=== PATIENT | female | born 1965 | race American Indian/Alaskan Native ===

== ENCOUNTER 2017-08-25 13:20 | Outpatient (CLI) | payer OTHER ==
--- NOTE | 2017-08-25 16:16 | Mammography Report ---
Bilateral mammogram: Compared to 11/26/15. CAD study utilized. Findings: Predominance of adipose tissue bilaterally. No mass or microcalcification. Benign axillary nodes. Impression: Benign findings. Annual followup recommended. BI-RADS CATEGORY: 2 = Benign ACR BI-RADS MAMMOGRAPHIC CODES: 0 = Needs additional imaging evaluation; 1 = Negative; 2 = Benign; 3 = Probably benign; 4 = Suspicious; 5 = Malignant; 6 = Known biopsy-proven malignancy COMMENT: 1. Dense breast tissue, i.e., adenosis, fibrocystic changes, etc., may obscure an underlying neoplasm. 2. Approximately 10% of cancers are not detected with mammography. 3. A negative mammography report should not delay biopsy if a clinically suspicious mass is present. COMMENT: Patient follow-up letters are generated in [employer].
== END 2017-08-25 13:21 | disposition home or self-care (01) ==
LOC: MAMMO 13:20
PROVIDERS: ATTEND Family Medicine
DX: Z12.31 Encounter for screening mammogram for malignant neoplasm of breast (principal)
CPT/HCPCS: 77067; G0202

== ENCOUNTER 2018-07-04 23:16 | Emergency (ER) | payer OTHER ==
[2018-07-05] MEDS ORDERED: ASPIRIN PO ONE (01:25)
[2018-07-05 02:07] LABS: Hemoglobin 15.5 gm/dl (10.1-14.3); Red Blood Count 4.96 M/mm3 (3.65-5.03)
[2018-07-05 02:08] LABS: Basophils % (Auto) 0.1 % (0.0-1.8); Hematocrit 45.2 % (30.3-42.9); Lymphocytes # (Auto) 1.1 K/mm3 (1.2-5.4); Lymphocytes % (Auto) 16.8 % (13.4-35.0); Mean Corpuscular HGB Conc 34 % (30-34); Mean Corpuscular Hemoglobin 31 pg (28-32); Mean Corpuscular Volume 91 fl (79-97); Monocytes # (Auto) 0.3 K/mm3 (0.0-0.8); Monocytes % (Auto) 4.3 % (0.0-7.3); Platelet Count 243 K/mm3 (140-440)
[2018-07-05 02:15] LABS: BUN/Creatinine Ratio 17; Blood Urea Nitrogen 10 mg/dL (7-17); Calcium 9.9 mg/dL (8.4-10.2); Hemolysis Index 3
--- NOTE | 2018-07-05 06:36 | Emergency Department Report ---
ED Palpitations HPI - General Chief Complaint: Arrhythmia/Palpitations Stated Complaint: POSS HIGH BP Time Seen by Provider: 07/05/18 06:35 Source: patient Mode of arrival: Ambulatory Limitations: No Limitations - History of Present Illness Complaint: "heart racing", palpitations, irregular heart beat -: Sudden Context: occured during rest Associated Symptoms: chest pain, shortness of breath - Related Data Previous Rx's Medication Instructions Recorded Last Taken Type Carvedilol [Coreg] 6.25 mg PO BID #60 tablet 07/05/18 Unknown Rx Lisinopril/Hydrochlorothiazide 1 tab PO QDAY #30 tab 07/05/18 Unknown Rx [Zestoretic 20-25 mg] Allergies Allergy/AdvReac Type Severity Reaction Status Date / Time No Known Allergies Allergy Verified 07/05/18 06:43 ED Review of Systems ROS: Stated complaint: POSS HIGH BP Other details as noted in HPI Comment: All other systems reviewed and negative Constitutional: denies: chills, fever Eyes: denies: eye pain, eye discharge ENT: denies: ear pain, throat pain Respiratory: shortness of breath. denies: cough, orthopnea Endocrine: no symptoms reported Gastrointestinal: denies: abdominal pain, nausea, vomiting, diarrhea Genitourinary: denies: urgency, dysuria, frequency Musculoskeletal: denies: back pain, joint swelling Skin: denies: rash, lesions, change in color Neurological: denies: headache, weakness, numbness Psychiatric: denies: anxiety, depression Hematological/Lymphatic: denies: easy bleeding, easy bruising ED Past Medical Hx - Past Medical History Hx Hypertension: Yes - Surgical History Additional Surgical History: Left Salpingectomy - Social History Smoking Status: Never Smoker Substance Use Type: None - Medications Home Medications: Home Medications Medication Instructions Recorded Confirmed Last Taken Type Carvedilol [Coreg] 6.25 mg PO BID #60 tablet 07/05/18 Unknown Rx Lisinopril/Hydrochlorothiazide 1 tab PO QDAY #30 tab 07/05/18 Unknown Rx [Zestoretic 20-25 mg] ED Physical Exam - General Limitations: No Limitations General appearance: alert, in no apparent distress - Head Head exam: Present: atraumatic, normocephalic, normal inspection - Eye Eye exam: Present: normal appearance, PERRL, EOMI Pupils: Present: normal accommodation - ENT ENT exam: Present: normal exam, normal orophraynx, mucous membranes moist - Neck Neck exam: Present: normal inspection, full ROM. Absent: tenderness - Respiratory Respiratory exam: Present: normal lung sounds bilaterally. Absent: respiratory distress, wheezes, rales, rhonchi, stridor - Cardiovascular Cardiovascular Exam: Present: regular rate, tachycardia. Absent: normal rhythm , normal heart sounds - GI/Abdominal GI/Abdominal exam: Present: soft, normal bowel sounds. Absent: distended, tenderness, guarding, rebound, rigid - Extremities Exam Extremities exam: Present: normal inspection, full ROM, normal capillary refill - Back Exam Back exam: Present: normal inspection, full ROM. Absent: tenderness - Neurological Exam Neurological exam: Present: alert, oriented X3, CN II-XII intact - Psychiatric Psychiatric exam: Present: normal affect, normal mood - Skin Skin exam: Present: warm, dry, intact, normal color ED Course Vital Signs 07/05/18 07/05/18 07/05/18 01:16 06:13 06:18 Temperature 98.7 F 97.6 F Pulse Rate 93 H 94 H Respiratory 18 Rate Blood Pressure 174/83 178/100 Blood Pressure 178/100 [Left] O2 Sat by Pulse 100 99 98 Oximetry 07/05/18 07/05/18 07/05/18 07:00 07:31 08:00 Temperature Pulse Rate 93 H 85 73 Respiratory 13 15 11 L Rate Blood Pressure 179/87 150/69 162/94 Blood Pressure [Left] O2 Sat by Pulse 99 98 98 Oximetry 07/05/18 07/05/18 07/05/18 08:30 09:03 09:30 Temperature Pulse Rate 81 79 86 Respiratory 13 12 12 Rate Blood Pressure 141/80 164/86 160/88 Blood Pressure [Left] O2 Sat by Pulse 97 97 97 Oximetry 07/05/18 07/05/18 07/05/18 10:00 10:30 11:00 Temperature Pulse Rate 81 77 Respiratory 13 13 Rate Blood Pressure 167/89 163/82 166/92 Blood Pressure [Left] O2 Sat by Pulse 98 97 Oximetry 07/05/18 11:30 Temperature Pulse Rate 77 Respiratory 12 Rate Blood Pressure 149/82 Blood Pressure [Left] O2 Sat by Pulse 97 Oximetry - Reevaluation(s) Reevaluation #1: 07/05/18 15:37 Patient was admitted to the hospitalist Dr Burnham for further evaluation and management and Cardiology was consulted. ED Medical Decision Making - Lab Data Result diagrams: 07/05/18 01:38 07/05/18 01:38 - EKG Data -: EKG Interpreted by Me EKG shows normal: sinus rhythm Rate: normal (98) - EKG Data When compared to previous EKG there are: previous EKG unavailable Interpretation: other (Diffused T wave inversion. No STEMI. Prolonged QT.) - Radiology Data Radiology results: report reviewed, image reviewed - Medical Decision Making Palpitation. Chest pain. Abnormal EKG. Critical care attestation.: If time is entered above; I have spent that time in minutes in the direct care of this critically ill patient, excluding procedure time. ED Disposition Clinical Impression: Abnormal electrocardiogram [ECG] [EKG], Heart palpitations Chest pain Qualifiers: Chest pain type: unspecified Qualified Code(s): R07.9 - Chest pain, unspecified Disposition: TO HOME OR SELFCARE Is pt being admited?: Yes Does the pt Need Aspirin: Yes Condition: Stable Instructions: Chest Pain (ED) Prescriptions: Carvedilol [Coreg] 6.25 mg PO BID #60 tablet Lisinopril/Hydrochlorothiazide [Zestoretic 20-25 mg] 1 tab PO QDAY #30 tab Referrals: YAS MIRANDA MD [Staff Physician] - 7 Days PRIMARY CARE, [Primary Care Provider] - 3-5 Days Time of Disposition: 10:26
[2018-07-05] MEDS ORDERED: ASPIRIN ONE (06:59)
[2018-07-05] MEDS ORDERED: NORMODYNE IV ONE (07:05)
--- NOTE | 2018-07-05 07:55 | XRay Report ---
AP CHEST: HISTORY: Palpitations AP view of the chest demonstrates a normal mediastinal and cardiac contour with clear lungs and normal bony and soft tissue structures. IMPRESSION: Unremarkable AP chest.
[2018-07-05 08:20] LABS: INR 0.95 (0.87-1.13)
[2018-07-05 08:21] LABS: Partial Thromboplastin Time 26.5 Sec. (24.2-36.6)
[2018-07-05 08:38] LABS: Alanine Aminotransferase 10 units/L (7-56); Albumin 4.6 g/dL (3.9-5)
[2018-07-05 08:50] LABS: Bilirubin,Direct < 0.2 mg/dL (0-0.2)
[2018-07-05 09:22] LABS: Bilirubin,Urine NEG (Negative); Blood,Urine NEG (Negative); Color,Urine Yellow (Yellow); Mucus,Urine FEW /HPF; Protein,Urine <15 mg/dL mg/dL (Negative); Urobilinogen,Urine < 2.0 mg/dL (<2.0); WBC,Urine < 1.0 /HPF (0.0-6.0)
--- NOTE | 2018-07-05 10:51 | Short Stay Summary ---
Short Stay Documentation Date of service: 07/05/18 - Allergies and Medications Current Medications: Allergies No Known Allergies Allergy (Verified 07/05/18 06:43) Home Medications Medication Instructions Recorded Confirmed Last Taken Type Carvedilol [Coreg] 6.25 mg PO BID #60 tablet 07/05/18 Unknown Rx Lisinopril/Hydrochlorothiazide 1 tab PO QDAY #30 tab 07/05/18 Unknown Rx [Zestoretic 20-25 mg] - Disposition Condition at discharge: Stable Disposition: DC- TO HOME OR SELFCARE Short Stay Discharge Plan Follow up with: PRIMARY CARE, [Primary Care Provider] - 3-5 Days YAS MIRANDA MD [Staff Physician] - 7 Days Prescriptions: Carvedilol [Coreg] 6.25 mg PO BID #60 tablet Lisinopril/Hydrochlorothiazide [Zestoretic 20-25 mg] 1 tab PO QDAY #30 tab
--- NOTE | 2018-07-05 11:08 | Consultation ---
History of Present Illness Consult date: 07/05/18 Consult reason: other (Palpitations, abnormal ECG) History of present illness: This is a 53 year old woman with a history of poorly controlled hypertension who presents to the emergency department with complaints of elevated blood pressure. Systolic blood pressure greater than 170 on presentation. Patient admits compliance with her medications. There were no complaints of chest pain, shortness of breath or palpitations. Her ECG shows a sinus rhythm with nonspecific Twave abnormalities. Past History Past Medical History: hypertension Medications and Allergies Allergies Allergy/AdvReac Type Severity Reaction Status Date / Time No Known Allergies Allergy Verified 07/05/18 06:43 Home Medications Medication Instructions Recorded Confirmed Last Taken Type Carvedilol [Coreg] 6.25 mg PO BID #60 tablet 07/05/18 Unknown Rx Lisinopril/Hydrochlorothiazide 1 tab PO QDAY #30 tab 07/05/18 Unknown Rx [Zestoretic 20-25 mg] Physical Examination Vital Signs Temp Pulse BP Pulse Ox 98.7 F 93 H 174/83 100 07/05/18 01:16 07/05/18 01:16 07/05/18 01:16 07/05/18 01:16 General appearance: no acute distress HEENT: Positive: PERRL Cardiac: Positive: Gallop Lungs: Positive: Decreased Breath Sounds Neuro: Positive: Grossly Intact Extremities: Absent: edema Results 07/05/18 01:38 07/05/18 01:38 Cardiac Enzymes 07/05/18 Range/Units 07:49 AST 20 (5-40) units/L Coagulation 07/05/18 Range/Units 07:49 PT 13.1 (12.2-14.9) Sec. INR 0.95 (0.87-1.13) APTT 26.5 (24.2-36.6) Sec. CBC 07/05/18 Range/Units 01:38 WBC 6.6 (4.5-11.0) K/mm3 RBC 4.96 (3.65-5.03) M/mm3 Hgb 15.5 H (10.1-14.3) gm/dl Hct 45.2 H (30.3-42.9) % Plt Count 243 (140-440) K/mm3 Lymph # 1.1 L (1.2-5.4) K/mm3 Mora # 0.3 (0.0-0.8) K/mm3 Eos # 0.0 (0.0-0.4) K/mm3 Baso # 0.0 (0.0-0.1) K/mm3 Comprehensive Metabolic Panel 07/05/18 07/05/18 Range/Units 01:38 07:49 Sodium 138 (137-145) mmol/L Potassium 3.8 (3.6-5.0) mmol/L Chloride 96.4 L (98-107) mmol/L Carbon Dioxide 29 (22-30) mmol/L BUN 10 (7-17) mg/dL Creatinine 0.6 L (0.7-1.2) mg/dL Glucose 111 H (65-100) mg/dL Calcium 9.9 (8.4-10.2) mg/dL Direct Bilirubin < 0.2 (0-0.2) mg/dL AST 20 (5-40) units/L ALT 10 (7-56) units/L Alkaline Phosphatase 51 (35-129) units/L Total Protein 8.1 (6.3-8.2) g/dL Albumin 4.6 (3.9-5) g/dL Assessment and Plan Hypertension, uncontrolled Recommendations: Discontinue HCTZ. Instead, use Coreg 6.25 twice a day and Lisinopril/HCT 20/ 25mg daily. Stable cardiac sevilla for discharge home today. Cardiac evaluation can be done as an outpatient. Patient will follow up at [facility] as scheduled at 240p.
[2018-07-05 11:52] VITALS: BP 149/82
== END 2018-07-05 11:57 | disposition home or self-care (01) ==
LOC: ED 23:16
DX: I10 Essential (primary) hypertension (principal); R00.2 Palpitations; R07.9 Chest pain, unspecified; R94.31 Abnormal electrocardiogram [ECG] [EKG]; Z90.79 Acquired absence of other genital organ(s)
CPT/HCPCS: 36415; 71045; 80048; 80074; 81001; 83735; 83880; 84443; 84484; 84703; 85025; 85379; 85610; 85730; 93005; 93010; 96374

== ENCOUNTER 2019-10-11 13:29 | Outpatient (CLI) | payer OTHER ==
--- NOTE | 2019-10-11 16:05 | Mammography Report ---
DIGITAL SCREENING MAMMOGRAM WITH CAD, 10/11/2019 INDICATION: Routine screening mammography. TECHNIQUE: Digital bilateral 2D mammography was obtained in the craniocaudal and mediolateral obliq ue projections. This examination was interpreted with the benefit of Computer-Aided Detection analysi s. COMPARISON: 10/10/2018 FINDINGS: Breast Density: The breasts are heterogeneously dense, which may obscure small masses. There is no evidence of dominant mass, suspicious calcifications or architectural distortion in eithe r breast. IMPRESSION: No mammographic evidence of malignancy. Follow up recommendation: Routine yearly BI-RADS Category 1: Negative. A "normal" or negative report should not discourage follow up or biopsy of a clinically significant f inding. A written summary of these findings will be mailed to the patient. The patient will be entered into a mammography reporting system which will generate a reminder letter for the patient's next appointmen t at the appropriate interval. The [employer] recommends yearly mammograms starting at age 40 and continuing as l maxi as a woman is in good health. Breast MRI is recommended for women with an approximate 20-25% or greater lifetime risk of breast cancer, including women with a strong family history of breast or ova dennise cancer or who have been treated for Hodgkin's disease. Signer Name: Armin Bland MD Signed: 10/11/2019 4:01 PM Workstation Name: [id number]
== END 2019-10-11 13:30 | disposition home or self-care (01) ==
LOC: MAMMO 13:29
PROVIDERS: ATTEND Family Medicine
DX: Z12.31 Encounter for screening mammogram for malignant neoplasm of breast (principal)
CPT/HCPCS: 77067